=== PATIENT | female | born 1975 | race Caucasian/White ===

== ENCOUNTER 2017-09-27 18:24 | Emergency (ER) | payer OTHER ==
[2017-09-27 18:33] VITALS: PULSE 78; TEMP 98.5; O2SAT 98
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
[2017-09-27 20:16] VITALS: BP 126/84; RESP 16
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
== END 2017-09-27 20:15 | disposition home or self-care (01) ==
LOC: C.ER 18:24
DX: S60.211A Contusion of right wrist, initial encounter (principal); S80.12XA Contusion of left lower leg, initial encounter; V09.9XXA Pedestrian injured in unspecified transport accident, initial encounter